=== PATIENT | female | born 1985 | race Caucasian/White ===

== ENCOUNTER 2018-04-12 17:41 | Inpatient (IN) ==
[2018-04-12 18:11] LABS: Baso % (Auto) 0.5 % (0.0-2.0); Eos % (Auto) 0.4 % (0.0-4.0); Hematocrit 40.4 % (35.0-46.0); Hemoglobin 13.8 gm/dL (11.6-15.3); Lymph # (Auto) 1.5 th/mm3 (1.0-4.8); Lymph % (Auto) 24.4 % (9.0-44.0); Mean Corpuscular HGB Conc 34.1 % (32.0-36.0); Mean Corpuscular Hemoglobin 32.5 pg (27.0-34.0); Mean Corpuscular Volume 95.3 fL (80.0-100.0); Mean Platelet Volume 8.5 fL (7.0-11.0); Mono # (Auto) 0.4 th/mm3 (0.0-0.9); Mono % (Auto) 6.3 % (0.0-8.0); Neut # (Auto) 4.3 th/mm3 (1.8-7.7); Neut % (Auto) 68.4 % (16.0-70.0); Platelet Count 285 th/mm3 (150-450); Red Blood Count 4.24 mil/mm3 (4.00-5.30); Red Cell Distribution Width 13.4 % (11.6-17.2); White Blood Count 6.2 th/mm3 (4.0-11.0)
[2018-04-12 18:33] LABS: Albumin 4.5 g/dL (3.4-5.0); Anion Gap 9 meq/L (5-15); Blood Urea Nitrogen 5 mg/dL (7-18); Calcium 8.6 mg/dL (8.5-10.1); Carbon Dioxide 24.6 meq/L (21.0-32.0); Chloride 102 meq/L (98-107); Glomerular Filtration Rate 81 mL/min (>89); Glucose,Random 66 mg/dL (74-106); Potassium 4.1 meq/L (3.5-5.1); Sodium 136 meq/L (136-145)
[2018-04-12 18:34] LABS: Alanine Aminotransferase 29 U/L (10-53); Aspartate Aminotransferase 28 U/L (15-37)
[2018-04-12 18:35] LABS: Alcohol 228 mg/dL (0-5)
[2018-04-12 18:43] LABS: Alkaline Phosphatase 82 U/L (45-117); Thyroid Stimulating Hormone 0.872 uIU/mL (0.358-3.740); Total Protein 8.2 g/dL (6.4-8.2)
[2018-04-12 19:21] LABS: Bilirubin,Urine Negative (Negative); Clarity,Urine Hazy (Clear); Color,Urine Straw (Yellw/Straw); Glucose,Urine (UA) Negative (Negative); Leukocyte Esterase,Urine Negative (Negative); Nitrite,Urine Negative (Negative); Specific Gravity,Urine 1.002 (1.002-1.035); Squamous Epithelial Cell,Urine 2 /hpf (0-5)
[2018-04-12 19:27] LABS: Amphetamine Screen,Urine Neg (Neg); Barbiturate Screen,Urine Neg (Neg); Cannabinoid Screen,Urine Neg (Neg); Cocaine Screen,Urine Neg (Neg)
[2018-04-12 19:30] LABS: Opiate Screen,Urine Neg (Neg)
--- NOTE | 2018-04-12 21:34 | ED ---
HPI General Chief Complaint: Psychiatric Symptoms Stated Complaint: Psych Time Seen by Provider: 04/12/18 19:37 Source: patient and police Mode of arrival: other (Police) Limitations: no limitations History of Present Illness HPI Narrative: Presents to our facility under a [place] act by the police department. Patient was in a argument with her mother who called the police. Upon police his arrival to the location patient started screaming that she wanted to kill herself. Patient is obviously intoxicated. Admits to drinking alcohol throughout the day MD complaint: Reports suicidal ideation Onset (ago): unknown Duration: constant History of same: No Relieving factors: none Exacerbating factors: none Context: Reports recent alcohol abuse; Denies recent drug abuse Associated psychiatric symptoms: Reports depression Associated symptoms: Denies confusion, headache, shortness of breath, nausea, vomiting and syncope Treatments prior to arrival: Reports none Related Data Home Medications Medication Instructions Recorded Confirmed sertraline 100 mg PO DAILY 04/12/18 04/12/18 Allergies Allergy/AdvReac Type Severity Reaction Status Date / Time No Known Allergies Allergy Verified 04/12/18 17:48 [facility] Medical History Medical History Depression (Acute) Surgical History Surgical History H/O breast augmentation (Acute) History of removal of ovarian cyst (Acute) Social History Social History Substance History: No History of Abuse Second Hand Smoke Exposure: No Smoking Status: Former smoker How Often Do You Have a Drink Containing Alcohol: 2 to 3 times a week Recent Travel in [facility] within the Last 8 Weeks: No Recent Out of Country Travel within the Last 8 Weeks: No Immunization History Tetanus Immunization: <5 Years Course Initial Documented Vital Signs Temperature 98.2 F 04/12/18 17:49 Pulse Rate 96 H 04/12/18 17:49 Respiratory Rate 16 04/12/18 17:49 Blood Pressure 133/91 H 04/12/18 17:49 Pulse Oximetry 99 04/12/18 17:49 Last Documented Vital Signs Temperature 98.2 F 04/12/18 22:10 Pulse Rate 90 04/12/18 22:10 Respiratory Rate 12 04/12/18 22:10 Blood Pressure 110/60 04/12/18 22:10 Pulse Oximetry 95 04/12/18 22:10 Medical Decision Making MDM Narrative Medical decision making narrative: Presents to our facility under a [place] act by the police department. Patient was in a argument with her mother who called the police. Upon police his arrival to the location patient started screaming that she wanted to kill herself. Patient is obviously intoxicated. Admits to drinking alcohol throughout the day Blood pressure is 110/60, pulse is 90, temperature is 98.2, O2 sat is 95 on room air Physical exam is unremarkable except for patient is obviously intoxicated. Patient received basic lab work along with a tox screen Patient's alcohol level is 228 Patient is medically cleared at 2200 Await psychiatric evaluation in the morning Medical Screen Exam Complete: Yes Emergency Medical Condition: Yes Differential Diagnosis Differential Diagnosis: Suicidal ideation, anxiety, depression, alcohol induced psychosis, alcohol dependence Lab Data Lab results reviewed: Yes I reviewed the patient's lab results. Result diagrams: 04/12/18 17:54 04/12/18 17:54 POC Results POC Urine Results Negative Lab Results 04/12/18 04/12/18 04/12/18 Range/Units 17:54 17:54 17:54 WBC 6.2 (4.0-11.0) th/mm3 RBC 4.24 (4.00-5.30) mil/mm3 Hgb 13.8 (11.6-15.3) gm/dL Hct 40.4 (35.0-46.0) % MCV 95.3 (80.0-100.0) fL MCH 32.5 (27.0-34.0) pg MCHC 34.1 (32.0-36.0) % RDW 13.4 (11.6-17.2) % Plt Count 285 (150-450) th/mm3 MPV 8.5 (7.0-11.0) fL Neut % (Auto) 68.4 (16.0-70.0) % Lymph % (Auto) 24.4 (9.0-44.0) % [place] % (Auto) 6.3 (0.0-8.0) % Eos % (Auto) 0.4 (0.0-4.0) % Baso % (Auto) 0.5 (0.0-2.0) % Neut # (Auto) 4.3 (1.8-7.7) th/mm3 Lymph # (Auto) 1.5 (1.0-4.8) th/mm3 [place] # (Auto) 0.4 (0.0-0.9) th/mm3 Eos # (Auto) 0.0 (0.0-0.4) th/mm3 Baso # (Auto) 0.0 (0.0-0.2) th/mm3 WBC Differential . Differential Comment Auto diff final Sodium 136 (136-145) meq/L Potassium 4.1 (3.5-5.1) meq/L Chloride 102 (98-107) meq/L Carbon Dioxide 24.6 (21.0-32.0) meq/L Anion Gap 9 (5-15) meq/L BUN 5 L (7-18) mg/dL Creatinine 0.81 (0.50-1.00) mg/dL Estimated GFR 81 L (>89) mL/min Random Glucose 66 L (74-106) mg/dL Calcium 8.6 (8.5-10.1) mg/dL Magnesium 2.0 (1.5-2.5) mg/dL Total Bilirubin 0.5 (0.2-1.0) mg/dL AST 28 (15-37) U/L ALT 29 (10-53) U/L Alkaline Phosphatase 82 (45-117) U/L Total Protein 8.2 (6.4-8.2) g/dL Albumin 4.5 (3.4-5.0) g/dL TSH 0.872 (0.358-3.740) uIU/mL Urine Color (Yellw/Straw) Urine Clarity (Clear) Urine pH (5.0-8.5) Ur Specific [place] (1.002-1.035) Urine Protein (Neg-Trace) mg/dL Urine Glucose (UA) (Negative) mg/dL Urine Ketones (Negative) mg/dL Urine Occult Blood (Negative) Urine Nitrate (Negative) Urine Bilirubin (Negative) Urine Urobilinogen (Less than 2) mg/dL Ur Leukocyte Esterase (Negative) Urine RBC (0-3) /hpf Ur Squamous Epith Cells (0-5) /hpf Micro UA Comment Ur Microscopic Review Urine Culture Comments Salicylates Less than 1.7 L (2.8-20.0) mg/dL Urine Opiates Screen (Neg) Acetaminophen Less than 2.0 L (10.0-30.0) mcg/mL Ur Barbiturates Screen (Neg) Ur Amphetamines Screen (Neg) U Benzodiazepines Scrn (Neg) Urine Cocaine Screen (Neg) U Cannabinoids Screen (Neg) Serum Alcohol 228 H (0-5) mg/dL 04/12/18 04/12/18 Range/Units 18:15 18:15 WBC (4.0-11.0) th/mm3 RBC (4.00-5.30) mil/mm3 Hgb (11.6-15.3) gm/dL Hct (35.0-46.0) % MCV (80.0-100.0) fL MCH (27.0-34.0) pg MCHC (32.0-36.0) % RDW (11.6-17.2) % Plt Count (150-450) th/mm3 MPV (7.0-11.0) fL Neut % (Auto) (16.0-70.0) % Lymph % (Auto) (9.0-44.0) % [place] % (Auto) (0.0-8.0) % Eos % (Auto) (0.0-4.0) % Baso % (Auto) (0.0-2.0) % Neut # (Auto) (1.8-7.7) th/mm3 Lymph # (Auto) (1.0-4.8) th/mm3 [place] # (Auto) (0.0-0.9) th/mm3 Eos # (Auto) (0.0-0.4) th/mm3 Baso # (Auto) (0.0-0.2) th/mm3 WBC Differential Differential Comment Sodium (136-145) meq/L Potassium (3.5-5.1) meq/L Chloride (98-107) meq/L Carbon Dioxide (21.0-32.0) meq/L Anion Gap (5-15) meq/L BUN (7-18) mg/dL Creatinine (0.50-1.00) mg/dL Estimated GFR (>89) mL/min Random Glucose (74-106) mg/dL Calcium (8.5-10.1) mg/dL Magnesium (1.5-2.5) mg/dL Total Bilirubin (0.2-1.0) mg/dL AST (15-37) U/L ALT (10-53) U/L Alkaline Phosphatase (45-117) U/L Total Protein (6.4-8.2) g/dL Albumin (3.4-5.0) g/dL TSH (0.358-3.740) uIU/mL Urine Color Straw (Yellw/Straw) Urine Clarity Hazy H (Clear) Urine pH 6.0 (5.0-8.5) Ur Specific [place] 1.002 (1.002-1.035) Urine Protein 30 H (Neg-Trace) mg/dL Urine Glucose (UA) Negative (Negative) mg/dL Urine Ketones Negative (Negative) mg/dL Urine Occult Blood Large H (Negative) Urine Nitrate Negative (Negative) Urine Bilirubin Negative (Negative) Urine Urobilinogen Less than 2 (Less than 2) mg/dL Ur Leukocyte Esterase Negative (Negative) Urine RBC Less than 1 (0-3) /hpf Ur Squamous Epith Cells 2 (0-5) /hpf Micro UA Comment Culture not ind Ur Microscopic Review Not Reportable Urine Culture Comments Culture not ind Salicylates (2.8-20.0) mg/dL Urine Opiates Screen Neg (Neg) Acetaminophen (10.0-30.0) mcg/mL Ur Barbiturates Screen Neg (Neg) Ur Amphetamines Screen Neg (Neg) U Benzodiazepines Scrn Neg (Neg) Urine Cocaine Screen Neg (Neg) U Cannabinoids Screen Neg (Neg) Serum Alcohol (0-5) mg/dL Discharge Plan Discharge Disposition Patient Disposition: Sign Out(ED Internal Use Only) Discharge Condition Condition: Stable Discharge Details Diagnosis: Suicidal ideation, Alcohol intoxication Physicians Team ED Provider: Jocelynn Tolbert ED Midlevel Provider: Estefany Ramirez Primary Care Provider: Primary Care SaraiLove Rxs /Orders / Referrals /Forms Prescriptions: No Action sertraline 100 mg Tablet 100 mg PO DAILY RF: 0 Status ED Status: Medically Cleared
[2018-04-13] MEDS ORDERED: Acetaminophen 325 MG Tablet PO PRN (10:39)
[2018-04-13] MEDS ORDERED: Aluminum/Magnesium/Simethacone Susp 30 ML UDC PO PRN (10:39)
[2018-04-13] MEDS ORDERED: Haloperidol Inj 5 MG/ML Ampul IV.PUSH PRN (10:42)
[2018-04-13] MEDS ORDERED: LORazepam 1 MG Tablet PO PRN (10:42)
[2018-04-13] MEDS ORDERED: Sertraline 50 MG Tablet PO SCH (10:45)
--- NOTE | 2018-04-13 10:55 | P.HPPSY ---
Provisional Diagnosis Admission Date: April 13, 2018 10:40 [place] I.: 1. Adjustment disorder with mixed disturbance of emotions and conduct Rule out major depressive episode 2. Alcohol use disorder, mild [place] II.: Deferred. Competence Certification of Person's Competence To Provide Express and Informed Consent I have personally examined Marsha Sanders, a person being served at [facility] on, April 13, 2018 1045. Express and informed consent means consent voluntarily given in writing, by a competent person, after sufficient explanation and disclosure of the subject matter involved to enable the person to make a knowing and willful decision without any element of force, fraud, deceit, duress, or other form of constraint or coercion. This person is 18 years of age or older, is not now known to be incompetent to consent to treatment with a guardian advocate, and does not have a health care surrogate or proxy currently making medical treatment decisions. I have found this person to be one of the following: [] Competent to provide express and informed consent, as defined above, for voluntary admission to this facility and is competent to provide express and informed consent for treatment. He/she has the consistent capacity to make well reasoned, willful, and knowing decisions concerning his or her medical or mental health treatment. The person fully and consistently understands the purpose of the admission for examination/placement and is fully capable of personally exercising all rights assured [place] [] Incompetent to provide express and informed consent to voluntary admission, and this is incompetent to provide express and informed consent to treatment. The person must be transferred to involuntary status and a petition for a guardian advocate filed with the Circuit Court. [X] Refusing to provide express and informed consent to voluntary admission but is competent to provide express and informed consent for treatment. The person must be discharged or transferred to involuntary status. Form shall be completed within 24 hours of a person's arrival at the receiving facility and filed in the clinical record of each person: 1. Admitted on a voluntary basis 2. Permitted to provide express and informed consent to his/her own treatment 3. Allowed to transfer from involuntary to voluntary status 4. Prior to permitting a person to consent to his or her own treatment after having been previously found incompetent to consent to treatment. History of Present Illness Capacity: Has capacity Chief Complaint: Tolbert act History of Present Illness: Ms. Sanders is a 33-year-old female with a reported history of eating disordered behavior in adolescence and young adulthood who presents under a Tolbert act by law enforcement alleging that the patient was involved in a disturbance with her mother and said that she was looking for a gun with which to kill herself. Of note, patient's alcohol level on presentation here was 228. Reviewing the electronic medical record, I see no previous psychiatric contact within our system. Patient seen and examined. Chart reviewed. Case discussed with nurse in the J pod. On my examination today, the patient presents as quite dysphoric and intermittently tearful. She is presently clinically sober. She explains that her mother was intoxicated yesterday evening and mother got into an argument with her father about the [employer]. The patient reports that she endeavored to defend her father but got drawn into the argument. Patient reports that she was so distressed by this argument that she did indeed look for her firearm with the goal of attempting suicide. Patient is somewhat evasive when asked if she is having ongoing suicidal ideation, saying that if she cannot get to a more stable living environment with her children, she would have nothing to live for. Patient describes her mood as tense. She reports that her sleep is chronically poor. No reported appetite disturbance. No reported focus or concentration difficulties. She does describe continuous and generalized anxiety. No reported panic. No hypomanic or manic symptoms reported. She denies any audiovisual hallucinations. I can elicit no delusional beliefs. No reported ongoing issues with eating disordered behavior. The remainder of the psychiatric ROS is negative. No acute physical complaints but the patient does report that she has been struggling with night sweats, ongoing despite having given over 6 months ago and not breast-feeding as well as menstrual abnormalities. Past psychiatric history: The patient reports a history of eating disorder from ages [age]. She describes this as a mixture of anorexic and bulimic behaviors but does not give a formal diagnosis. She also struggles with anxiety and is followed by her primary care doctor for this who prescribed Zoloft 100 mg daily. Patient reports that she has been on this medication for about 6 months but is not sure if it is helping. She is not under the care of an outpatient psychiatrist. She was psychiatrically admitted at age 15 for eating disordered behavior. She denies a history of suicide attempts. She denies a history of nonsuicidal self-injurious behavior. Family history: Patient reports that her brother carries a diagnosis of bipolar disorder. She also believes that he might have some sort of pervasive developmental disorder such as Asperger's. She denies a family history of suicide. Chemical dependency history: The patient reports regular consumption of approximately 48 ounces of beer daily. Patient does admit that she has occasionally lost control of quantity of consumption and has drunk even more beer. She also reports that she has had relationship problems as a consequence of her drinking. She denies any history of DUIs or work problems related to her drinking. She denies any history of DTs or seizures. Her longest sober time was 9 months while she was . She denies any use of cannabis, benzodiazepines, pain pills or other substances. She does vape nicotine. Social history: The patient is in the process of a divorce from her who is in the . She has moved in with her parents but reportedly has a somewhat fractious relationship with them. In the home are her parents, her brother, HER-2 young children and a pet dog. 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 Presently, she is looking for work. She does report owning a firearm and says that her father has confiscated this, although she does plan to get this back. She is a [employer]. She denies any history of trauma. Patient declines to provide any sources for collateral information when asked, saying that there are 9 who would pain to her in a good light. Past medical history: No reported history of diagnosed medical issues other than psychiatric issues. Medications: Zoloft 100 mg daily. Allergies: No known allergies. - Inpatient Certification I certify that the inpatient services were ordered in accordance with Medicare regulations governing the order. This includes certification that hospital inpatient services are reasonable and necessary and in the case of services not specified as inpatient-only under 42 CFR 419.22(n), that they are appropriately provided as inpatient services in accordance to with the 2-midnight benchmark under 43 CFR 412.3(e) I certify that inpatient psychiatric hospital services are medically necessary. Evaluation and treatment and/or diagnostic testing are expected to improve the patient's condition. The patient needs on a daily basis, active treatment furnished directly by or requiring the supervision of inpatient psychiatric facility personnel. Estimated Total Length of Stay (Days): 5 (3-5) Plans for Post Hospital Care: Not yet determined Review of Systems All other systems reviewed negative except as stated in HPI [facility] - History History Provided By: Patient - Medical History Medical History: Medical History (Last Updated 04/12/18 @ 17:52 by Delphine Calvert RN) Depression - Surgical History Surgical History: Surgical History (Last Updated 04/12/18 @ 17:52 by Delphine Calvert RN) H/O breast augmentation History of removal of ovarian cyst - Tobacco History Second Hand Smoke Exposure: No Tobacco Use In Past 30 Days: No Smoking Status: Former smoker - Alcohol History How Often Do You Have a Drink Containing Alcohol: 2 to 3 times a week - Substance Use History Substance History: No History of Abuse - Travel History Recent Travel in the [place] Within the Last 8 Weeks: No Recent Travel Out of the Country Within the Last 8 Weeks: No - Immunization History Tetanus Immunization: <5 Years Quality Measures - Psychiatric History Psychological trauma history: See above - Patient Strengths Patient's strengths (minimum of 2): In a monitored setting Medications and Allergies Active Medications: Active Medications Acetaminophen (Tylenol) 650 mg PO Q4H PRN PRN Reason: Pain 1-5 or Temp >101F Al Hydrox/Mg Hydrox/Simethicone (Mag-Al Plus Susp Liq) 30 ml PO Q6H PRN PRN Reason: DYSPEPSIA Al Hydroxide/Mg Hydroxide (Milk Of Magnesia Liq) 30 ml PO Q12H PRN PRN Reason: Mild Constipation Flumazenil (Romazecon Inj) 0.2 mg IV.PUSH Q1M PRN PRN Reason: OVERSEDATION Folic Acid (Folic Acid) 1 mg PO DAILY JONNATHAN Stop: 04/18/18 10:44 Haloperidol Lactate (Haldol Inj) 1 mg IV.PUSH Q15M PRN PRN Reason: for severe agitation Hydroxyzine HCl (Atarax) 25 mg PO Q6H PRN PRN Reason: ANXIETY Lorazepam (Ativan) 1 mg PO Q4H PRN PRN Reason: for CIWA 8-10 Lorazepam (Ativan) 2 mg PO Q2H PRN PRN Reason: for CIWA 11-14 Lorazepam (Ativan Inj) 2 mg IV.PUSH Q2H PRN PRN Reason: for CIWA 11-14 Lorazepam (Ativan Inj) 2 mg IV.PUSH Q1H PRN PRN Reason: for CIWA 15-20 Lorazepam (Ativan Inj) 2 mg IV.PUSH Q15M PRN PRN Reason: for CIWA > 20 Lorazepam (Ativan Inj) 1 mg IV.PUSH Q4H PRN PRN Reason: for CIWA 8-10 Melatonin (Melatonin) 5 mg PO HS PRN PRN Reason: INSOMNIA Multivitamins/Minerals (Theragran-M) 1 tab PO DAILY JONNATHAN Stop: 04/18/18 10:44 Nicotine (Habitrol 14 Mg Patch.24 Hr) 1 patch T-DERMAL DAILY PRN PRN Reason: Nicotine craving Patch Removal (Remove Old Patch) 1 each T-DERMAL HS JONNATHAN Sertraline HCl (Zoloft) 125 mg PO DAILY JONNATHAN Thiamine HCl (Vitamin B1) 100 mg PO DAILY JONNATHAN Allergies Allergy/AdvReac Type Severity Reaction Status Date / Time No Known Allergies Allergy Verified 04/12/18 17:48 Home Medications Medication Instructions Recorded Confirmed Type sertraline 100 mg PO DAILY 04/12/18 04/12/18 History Results - Labs CBC & Chem 7: 04/12/18 17:54 04/12/18 17:54 Labs: Laboratory Results - last 24 hr 04/12/18 04/12/18 04/12/18 17:54 17:54 17:54 WBC 6.2 RBC 4.24 Hgb 13.8 Hct 40.4 MCV 95.3 MCH 32.5 MCHC 34.1 RDW 13.4 Plt Count 285 MPV 8.5 Neut % (Auto) 68.4 Lymph % (Auto) 24.4 [place] % (Auto) 6.3 Eos % (Auto) 0.4 Baso % (Auto) 0.5 Neut # (Auto) 4.3 Lymph # (Auto) 1.5 [place] # (Auto) 0.4 Eos # (Auto) 0.0 Baso # (Auto) 0.0 WBC Differential . Differential Comment Auto diff final Sodium 136 Potassium 4.1 Chloride 102 Carbon Dioxide 24.6 Anion Gap 9 BUN 5 L Creatinine 0.81 Estimated GFR 81 L Random Glucose 66 L Calcium 8.6 Magnesium 2.0 Total Bilirubin 0.5 AST 28 ALT 29 Alkaline Phosphatase 82 Total Protein 8.2 Albumin 4.5 TSH 0.872 Urine Color Urine Clarity Urine pH Ur Specific [place] Urine Protein Urine Glucose (UA) Urine Ketones Urine Occult Blood Urine Nitrate Urine Bilirubin Urine Urobilinogen Ur Leukocyte Esterase Urine RBC Ur Squamous Epith Cells Micro UA Comment Ur Microscopic Review Urine Culture Comments Salicylates Less than 1.7 L Urine Opiates Screen Acetaminophen Less than 2.0 L Ur Barbiturates Screen Ur Amphetamines Screen U Benzodiazepines Scrn Urine Cocaine Screen U Cannabinoids Screen Serum Alcohol 228 H 04/12/18 04/12/18 18:15 18:15 WBC RBC Hgb Hct MCV MCH MCHC RDW Plt Count MPV Neut % (Auto) Lymph % (Auto) [place] % (Auto) Eos % (Auto) Baso % (Auto) Neut # (Auto) Lymph # (Auto) [place] # (Auto) Eos # (Auto) Baso # (Auto) WBC Differential Differential Comment Sodium Potassium Chloride Carbon Dioxide Anion Gap BUN Creatinine Estimated GFR Random Glucose Calcium Magnesium Total Bilirubin AST ALT Alkaline Phosphatase Total Protein Albumin TSH Urine Color Straw Urine Clarity Hazy H Urine pH 6.0 Ur Specific [place] 1.002 Urine Protein 30 H Urine Glucose (UA) Negative Urine Ketones Negative Urine Occult Blood Large H Urine Nitrate Negative Urine Bilirubin Negative Urine Urobilinogen Less than 2 Ur Leukocyte Esterase Negative Urine RBC Less than 1 Ur Squamous Epith Cells 2 Micro UA Comment Culture not ind Ur Microscopic Review Not Reportable Urine Culture Comments Culture not ind Salicylates Urine Opiates Screen Neg Acetaminophen Ur Barbiturates Screen Neg Ur Amphetamines Screen Neg U Benzodiazepines Scrn Neg Urine Cocaine Screen Neg U Cannabinoids Screen Neg Serum Alcohol Labs reviewed. GFR slightly decreased at 81. Urinalysis reveals large occult blood. No anemia. ED POC test negative. Exam Vital signs: Vital Signs 04/12/18 17:49 04/12/18 22:10 04/13/18 05:29 Temperature 98.2 F 98.2 F 98.3 F Pulse Rate 96 H 90 76 Respiratory Rate 16 12 16 Blood Pressure 133/91 H 110/60 125/73 Pulse Oximetry 99 95 98 Intake & Output 04/12/18 04/13/18 04/13/18 18:59 06:59 18:59 Weight 56.699 kg Narrative: Physical examination was completed by the ED provider. On my examination today , the patient appears to be in no acute physical distress. No motor abnormalities noted. No signs of ongoing intoxication noted. No hand tremor, no diaphoresis, no mydriasis, no other signs of alcohol withdrawal noted. Labs and vital signs reviewed. Mental Status Examination Appearance: Appropriate Consciousness: Alert Orientation: x4 Motor Activity: Other (No motor abnormalities noted) Speech: Unremarkable Language: Adequate Fund of Knowledge: Adequate Attention and Concentration: Adequate Memory: Unremarkable (Grossly intact on clinical exam) Mood: Other (Dysphoric) Affect: Other (Tearful at times) Thought Process & Associations: Intact Thought Content: Appropriate Hallucination Type: None Delusion Type: None Homicidal Ideation: No Homicidal Plan: No Homicidal Intention: No Insight: Fair Judgment: Impulsive Mental Status Exam Remarks: Evasive when asked about ongoing suicidality, see above. Assessment and Plan - Assessment (1) Adjustment disorder with mixed disturbance of emotions and conduct Code(s): F43.25 - Adjustment disorder with mixed disturbance of emotions and conduct Status: Acute (2) Alcohol use disorder, mild, abuse Code(s): F10.10 - Alcohol abuse, uncomplicated Status: Acute - Plan Plan: 33-year-old female with psychiatric history as detailed above who presents under a [place] act by law enforcement alleging threats of harm to self. On my evaluation today, the patient is clinically sober but remains quite dysphoric and tearful. She admits to contemplating suicide by gunshot wound last night and is somewhat evasive when asked about ongoing suicidality now. She declines to allow us to reach out to anyone for collateral information that might help clarify her suicide risk. Differential diagnosis is to include adjustment disorder, behavioral disturbance in the setting of alcohol intoxication, mood episode such as major depressive episode. Given the patient's current presentation and looking at the totality of the case, it seems most prudent at this juncture to admit the patient to the inpatient psychiatric unit for observation for ongoing impairments in safety. Admit inpatient. Patient is presently declining to consent for voluntary admission. Involuntary status. I have completed first opinion. Consult for second opinion. Patient retains capacity to consent for medications. I will titrate patient's Zoloft to 125 mg daily to manage her dysphoria. Atarax as needed for anxiety. Melatonin as needed for sleep. Request hospitalist consultation for patient's complaints of , menstrual abnormalities and night sweats. CIWA scale with Ativan for the management of any withdrawal. Thiamine and folate. Seizure precautions. Vitals every 4 hours as per CIWA scale. Counselor to see. Continue to endeavor to obtain collateral information. Disposition planning. Estimated length of stay: 3-5 days. Justification for Continued Inpatient Stay: Monitoring for ongoing impairments in safety. Discharge Planning: Pending outcome of observation. Request Healthcare Surrogate/Guardian Advocate?: No
[2018-04-13] MEDS: Multivitamin/Minerals Therapeutic Tablet PO SCH (12:29)
[2018-04-13] MEDS: Folic Acid 1 MG Tablet PO SCH (12:29)
[2018-04-13] MEDS ORDERED: Influenza (Quadrivalent) Vaccine 0.5 ML Syringe IM ONE (14:00)
[2018-04-13] MEDS: Sertraline 50 MG Tablet PO SCH (20:57)
[2018-04-13] MEDS: Melatonin 5 MG Tablet PO PRN (20:57)
[2018-04-14] MEDS: Multivitamin/Minerals Therapeutic Tablet PO SCH (08:39)
[2018-04-14] MEDS: Folic Acid 1 MG Tablet PO SCH (08:39)
[2018-04-14 11:15] LABS: Calcium 8.8 mg/dL (8.5-10.1); Potassium 3.8 meq/L (3.5-5.1)
[2018-04-14 11:18] LABS: Chol/HDL Ratio 1.98 Ratio
--- NOTE | 2018-04-14 12:40 | P.PNPSY ---
Subjective Chief Complaint: Tolbert act Remarks: Patient seen and examined with nurse. Chart reviewed. Case discussed with nursing staff. On my examination today, the patient says that she feels somewhat improved. She recognizes that her behavior prior to admission was "irrational." She denies any SI or HI. Affect less dysphoric today. Some cluster B personality traits noted. Denies new side effects from medications. Hospitalist consultation pending regarding previously reported physical complaints. No new physical complaints. Vital Signs Temp Pulse Resp BP Pulse Ox 04/14/18 06:03 97.7 F 79 16 116/66 100 Laboratory Results - last 24 hr 04/14/18 09:59 Sodium 138 Potassium 3.8 Chloride 104 Carbon Dioxide 29.0 Anion Gap 5 BUN 12 Creatinine 0.83 Estimated GFR 79 L Random Glucose 66 L Calcium 8.8 Triglycerides 137 Cholesterol 204 H LDL Cholesterol, Calc 74 HDL Cholesterol 103.0 H Cholesterol/HDL Ratio 1.98 Labs reviewed. GFR stable. Prolactin level has been ordered and is pending. Review of Systems All other systems reviewed negative except as stated in HPI Mental Status Examination Appearance: Appropriate Consciousness: Alert Orientation: x4 Motor Activity: Other (No abnormal motor movements noted. No signs of withdrawal noted.) Speech: Unremarkable Language: Adequate Fund of Knowledge: Adequate Attention and Concentration: Adequate Memory: Unremarkable (Grossly intact on clinical exam) Mood: Other (Less dysphoric) Affect: Appropriate Thought Process & Associations: Intact Thought Content: Appropriate Hallucination Type: None Delusion Type: None Suicidal Ideation: No Homicidal Ideation: No Insight: Fair Judgment: Impulsive Assessment and Plan - Assessment (1) Adjustment disorder with mixed disturbance of emotions and conduct Code(s): F43.25 - Adjustment disorder with mixed disturbance of emotions and conduct Status: Acute (2) Alcohol use disorder, mild, abuse Code(s): F10.10 - Alcohol abuse, uncomplicated Status: Acute - Plan Plan: Continue increased dose of Zoloft as ordered. Await hospitalist consultation. Continue to monitor on the inpatient unit. Continue other medications and care as ordered. Justification for Continued Inpatient Stay: Monitoring for impairments in safety. Discharge Planning: Pending outcome of observation. Request Healthcare Surrogate/Guardian Advocate?: No
--- NOTE | 2018-04-14 13:24 | P.PNPSY ---
Subjective Chief Complaint: Tolbert act Remarks: This is a request for second opinion. Admission note was reviewed and I agree with the history. Patient was seen and case was discussed with nursing. Patient has poor insight into admission. She minimizes the events leading up to her admission and a suicidal gesture. She is tearful and hysterical demanding to leave. At this time she does deny suicidal or homicidal ideation intent or plan. Review of Systems All other systems reviewed negative except as stated in HPI Mental Status Examination Appearance: Appropriate Consciousness: Alert Orientation: x4 Motor Activity: Other (No motor abnormalities noted) Speech: Unremarkable Language: Adequate Fund of Knowledge: Adequate Attention and Concentration: Adequate Memory: Unremarkable (Grossly intact on clinical exam) Mood: Other (Dysphoric) Affect: Other (Tearful at times) Thought Process & Associations: Intact Thought Content: Appropriate Hallucination Type: None Delusion Type: None Homicidal Ideation: No Homicidal Plan: No Homicidal Intention: No Insight: Fair Judgment: Impulsive Assessment and Plan - Assessment (1) Adjustment disorder with mixed disturbance of emotions and conduct Code(s): F43.25 - Adjustment disorder with mixed disturbance of emotions and conduct Status: Acute (2) Alcohol use disorder, mild, abuse Code(s): F10.10 - Alcohol abuse, uncomplicated Status: Acute - Plan Plan: I agree with the first opinion to continue petition. Criteria include suicidal ideation with a plan to kill herself with a gun Justification for Continued Inpatient Stay: Patient would decompensate in a less restrictive setting Request Healthcare Surrogate/Guardian Advocate?: No
[2018-04-14 13:29] LABS: Hemoglobin A1c 4.7 % (4.3-6.0)
--- NOTE | 2018-04-14 17:19 | P.CONIM ---
History of Present Illness Service: [facility] Consult date: 04/14/18 Reason for Consult: lactating without , 9 mos post Primary Care Provider: No Primary Care Physician Chief Complaint: lactating History of Present Illness: Ms. Sanders is a 33-year-old female with a reported history of eating disordered behavior in adolescence and young adulthood who presents under a [place] act by law enforcement alleging that the patient was involved in a disturbance with her mother and said that she was looking for a gun with which to kill herself. Of note, patient's alcohol level on presentation here was 228. In Review of the electronic medical record, there is no previous psychiatric contact within our system.Patient was admitted to psychiatry unit for evaluation and treatment. Medicine team consulted for medical management and complaint of after giving breath for 9 months. Patient seen and examined, family identified themselves as parents in the room discussed concern of continued . Patient stated she never breast-fed. Patient also mentioned she has 2 menstrual period 1n 1 month and happened twice. Patient stated he she is seen at [facility] Dr Dorman and recommended to take control pills. However patient stated she did not start taking the medication yet, however she has the prescription. States that she went to see how it do without it. Patient denies any breast pain or discomfort, denies abdominal pain, nausea, vomiting, diarrhea or constipation. Denies any period at this time. Patient denies any headache or SOB, denies any fever or chills. Patient denies any discharges or episode of at this time. Patient instructed to inform the nurse when it happened. Patient stated it happened only during her menstrual period. Patient and family noted that she did not have any psychiatric issues before however she had recently from the but there is no legal papers yet. Review of Systems Review of Systems: all other systems reviewed are negative [facility] Medical History Medical History Depression (Acute) 2 para 2 (Acute) Surgical History Surgical History H/O breast augmentation (Acute) History of removal of ovarian cyst (Acute) Social History Social History Substance History: No History of Abuse Second Hand Smoke Exposure: No Smoking Status: Former smoker Tobacco Type: Cigarettes How Often Do You Have a Drink Containing Alcohol: 2 to 3 times a week Recent Travel in [facility] within the Last 8 Weeks: No Recent Out of Country Travel within the Last 8 Weeks: No Immunization History Tetanus Immunization: <5 Years Hx Influenza Vaccine This Season: No Medications and Allergies Allergies Allergy/AdvReac Type Severity Reaction Status Date / Time No Known Allergies Allergy Verified 04/12/18 17:48 Home Medications Medication Instructions Recorded Confirmed Type sertraline 100 mg PO DAILY 04/12/18 04/12/18 History Active Medications: Active Medications Acetaminophen (Tylenol) 650 mg PO Q4H PRN PRN Reason: Pain 1-5 or Temp >101F Al Hydrox/Mg Hydrox/Simethicone (Mag-Al Plus Susp Liq) 30 ml PO Q6H PRN PRN Reason: DYSPEPSIA Al Hydroxide/Mg Hydroxide (Milk Of Magnesia Liq) 30 ml PO Q12H PRN PRN Reason: Mild Constipation Flumazenil (Romazecon Inj) 0.2 mg IV.PUSH Q1M PRN PRN Reason: OVERSEDATION Folic Acid (Folic Acid) 1 mg PO DAILY JONNATHAN Stop: 04/18/18 10:44 Last Admin: 04/14/18 08:39 Dose: 1 mg Haloperidol Lactate (Haldol Inj) 1 mg IV.PUSH Q15M PRN PRN Reason: for severe agitation Hydroxyzine Pamoate (Vistaril) 25 mg PO Q6H PRN PRN Reason: ANXIETY Last Admin: 04/13/18 20:57 Dose: 25 mg Lorazepam (Ativan) 1 mg PO Q4H PRN PRN Reason: for CIWA 8-10 Lorazepam (Ativan) 2 mg PO Q2H PRN PRN Reason: for CIWA 11-14 Lorazepam (Ativan Inj) 2 mg IV.PUSH Q2H PRN PRN Reason: for CIWA 11-14 Lorazepam (Ativan Inj) 2 mg IV.PUSH Q1H PRN PRN Reason: for CIWA 15-20 Lorazepam (Ativan Inj) 2 mg IV.PUSH Q15M PRN PRN Reason: for CIWA > 20 Lorazepam (Ativan Inj) 1 mg IV.PUSH Q4H PRN PRN Reason: for CIWA 8-10 Melatonin (Melatonin) 5 mg PO HS PRN PRN Reason: INSOMNIA Last Admin: 04/13/18 20:57 Dose: 5 mg Miscellaneous (Pill Splitter) 1 each OTHER UNSCH PRN PRN Reason: SEE LABEL COMMENTS Multivitamins/Minerals (Theragran-M) 1 tab PO DAILY [facility] Stop: 04/18/18 10:44 Last Admin: 04/14/18 08:39 Dose: 1 tab Nicotine (Habitrol 14 Mg Patch.24 Hr) 1 patch T-DERMAL DAILY PRN PRN Reason: Nicotine craving Last Admin: 04/14/18 16:22 Dose: 1 patch Patch Removal (Remove Old Patch) 1 each T-DERMAL HS JONNATHAN Last Admin: 04/13/18 20:56 Dose: 1 each Sertraline HCl (Zoloft) 125 mg PO HS JONNATHAN Last Admin: 04/13/18 20:57 Dose: 125 mg Thiamine HCl (Vitamin B1) 100 mg PO DAILY JONNATHAN Last Admin: 04/14/18 08:39 Dose: 100 mg Physical Exam Vital signs: Last Vital Signs Temp 97.7 F 04/14/18 06:03 Pulse 79 04/14/18 06:03 Resp 16 04/14/18 06:03 BP 116/66 04/14/18 06:03 Pulse Ox 100 04/14/18 06:03 Intake & Output 04/12/18 04/13/18 04/14/18 04/15/18 06:59 06:59 06:59 06:59 Weight 56.699 kg 56.6 kg Narrative: GENERAL: Well-developed, well-nourished, young female in no apparent distress SKIN: Warm and dry. HEAD: Atraumatic. Normocephalic. EYES: Pupils equal and round. No scleral icterus. No injection or drainage. ENT: No nasal bleeding or discharge. Mucous membranes pink and moist. NECK: Trachea midline. No JVD. CARDIOVASCULAR: Regular rate and rhythm. RESPIRATORY: No accessory muscle use. Clear to auscultation. Breath sounds equal bilaterally. GASTROINTESTINAL: Abdomen soft, non-tender, nondistended. Hepatic and splenic margins not palpable. MUSCULOSKELETAL: Extremities without clubbing, cyanosis, or edema. No obvious deformities. NEUROLOGICAL: Awake and alert. No obvious cranial nerve deficits. Motor grossly within normal limits. Five out of 5 muscle strength in the arms and legs. Normal speech. PSYCHIATRIC: Appropriate mood and affect; insight and judgment poor . Results Labs CBC & Chem 7: 04/12/18 17:54 04/14/18 09:59 Assessment and Plan (1) Adjustment disorder with mixed disturbance of emotions and conduct: Code(s): F43.25 - Adjustment disorder with mixed disturbance of emotions and conduct Status: Acute (2) Alcohol use disorder, mild, abuse: Code(s): F10.10 - Alcohol abuse, uncomplicated Status: Acute Plan Ms. Sanders is a 33-year-old female with a reported history of eating disordered behavior in adolescence and young adulthood who presents under a [place] act by law enforcement alleging that the patient was involved in a disturbance with her mother and said that she was looking for a gun with which to kill herself. Patient's alcohol level on presentation here was 228. In Review of the electronic medical record, there is no previous psychiatric contact within our system. Patient with complaint of after giving breath for 9 months without which happened during menstrual period. Lactating mother Irregular Menstrual periods 9 mos, without breast feeding Para 2, 2 - pt have seen [facility] for the same reason and was recommended to take control pills. Patient admitted has the prescription but has not started it yet. -prolactin level ordered and drawn, awaiting results - will start Rahel/ control pills if not interacting with Psychiatric medications or cleared with Psych - Follow up with [facility] Dr. Dorman (known to) or [facility] as an outpatient Alcohol use Disorder -CIWA Protocol -counseled on Alcohol cessation -ativan prn Adjustment Disorder Anxiety/Depression -Management by psychiatric team -Continue Zoloft DVT Protocol: pt ambulatory
[2018-04-14] MEDS: Melatonin 5 MG Tablet PO PRN (21:24)
[2018-04-14] MEDS: Sertraline 50 MG Tablet PO SCH (21:24)
[2018-04-15] MEDS: Multivitamin/Minerals Therapeutic Tablet PO SCH (08:45)
[2018-04-15] MEDS: Folic Acid 1 MG Tablet PO SCH (08:45)
--- NOTE | 2018-04-15 13:40 | P.DSPSY ---
Psychiatry Discharge Summary Inpatient Psychiatric care?: Yes Advance Directives: No Mental Health Advance Directive: No Health Care Proxy: No - Admission Admission Date: April 13, 2018 10:40 - Admission Diagnosis (1) Adjustment disorder with mixed disturbance of emotions and conduct Code(s): F43.25 - Adjustment disorder with mixed disturbance of emotions and conduct (2) Alcohol use disorder, mild, abuse Code(s): F10.10 - Alcohol abuse, uncomplicated Brief History: Ms. Sanders is a 33-year-old female with a reported history of eating disordered behavior in adolescence and young adulthood who presents under a [place] act by law enforcement alleging that the patient was involved in a disturbance with her mother and said that she was looking for a gun with which to kill herself. Of note, patient's alcohol level on presentation here was 228. Reviewing the electronic medical record, I see no previous psychiatric contact within our system. Patient seen and examined. Chart reviewed. Case discussed with nurse in the J pod. On my examination today, the patient presents as quite dysphoric and intermittently tearful. She is presently clinically sober. She explains that her mother was intoxicated yesterday evening and mother got into an argument with her father about the [employer]. The patient reports that she endeavored to defend her father but got drawn into the argument. Patient reports that she was so distressed by this argument that she did indeed look for her firearm with the goal of attempting suicide. Patient is somewhat evasive when asked if she is having ongoing suicidal ideation, saying that if she cannot get to a more stable living environment with her children, she would have nothing to live for. Patient describes her mood as tense. She reports that her sleep is chronically poor. No reported appetite disturbance. No reported focus or concentration difficulties. She does describe continuous and generalized anxiety. No reported panic. No hypomanic or manic symptoms reported. She denies any audiovisual hallucinations. I can elicit no delusional beliefs. No reported ongoing issues with eating disordered behavior. The remainder of the psychiatric ROS is negative. No acute physical complaints but the patient does report that she has been struggling with night sweats, ongoing despite having given over 6 months ago and not breast-feeding as well as menstrual abnormalities. Tobacco Use In Past 30 Days: No How Often Do You Have a Drink Containing Alcohol: 2 to 3 times a week Hospital Course: The patient was admitted to a locked, inpatient psychiatric unit. A general medical consultation was obtained. Appropriate precautions were in place throughout patient's hospital stay. Patient was seen and examined on the unit by psychiatry and also visited by counselor. Psychotropic medications were adjusted. Patient tolerated medication changes well without side effects. There was no evidence of any suicidality or homicidality on the inpatient unit. There was no evidence of self-care deficit. The patient was noted to have prominent borderline personality traits, and an underlying diagnosis of borderline personality disorder is suspected. On the day of discharge: Patient seen and examined with nurse, Prema. Chart reviewed. Case discussed with nursing staff. No behavioral issues noted overnight. Case discussed with counselor who has obtained collateral information from the patient's father. Parents are reportedly advocating for patient's discharge today and have told the counselor that they will supervise and monitor the patient after discharge. Counselor has confirmed with father that the home environment has been secured, and in particular that the patient' s firearm has been secured. On my examination today, the patient is requesting discharge from the inpatient psychiatric unit today. She displays some staff splitting and cycles of idealization/devaluation and in general continues to display borderline personality style. She denies any suicidal or homicidal ideation, intent or plan. I can elicit no depressive or hypomanic/manic symptoms. She is notably future oriented. She denies any audiovisual hallucinations. I can elicit no delusional beliefs. She denies any new side effects from medications. She has no acute physical complaints. Weighing the acute, chronic, and protective factors and based on the available evidence, I fitness worker that the patient no longer meets criteria for involuntary psychiatric hospitalization. There is no evidence of imminent risk of harm to self or others at this point, nor is there evidence of self-care deficit to substantiate ongoing involuntary psychiatric hospitalization. The patient's borderline personality style does likely confer chronic but not acute or imminent risk, and in any event this risk would not be ameliorated and may in fact be worsened by ongoing inpatient psychiatric hospitalization. Likewise, patient's alcohol use is a chronic risk factor. I have recommended to the patient that she abstain from substances of abuse and pursue chemical dependency evaluation and treatment on an outpatient basis. Patient will be discharged today into parents' care with mental health and chemical dependency follow-up as arranged by the counselor. Patient is also to follow-up with primary care and with gynecology as recommended by the hospitalist. I have discussed with the patient that her prolactin level is presently pending, and she will need to follow-up on this after discharge. I have counseled the patient regarding warning signs for need to return to the psychiatric emergency room as part of a general safety plan. - Discharge Discharge Date: 04/15/18 - Discharge Diagnosis (1) Borderline personality disorder Diagnosis: Principal Code(s): F60.3 - Borderline personality disorder Status: Suspected (2) Alcohol use disorder, mild, abuse Diagnosis: Secondary (Counseled to quit) Code(s): F10.10 - Alcohol abuse, uncomplicated Status: Chronic Discharge Disposition: Home - Discharge Instructions Discharge Diet: Regular Diet Activities You Can Perform: Weight Bearing As Tolerat - Discharge Time > 30 minutes Mental Status Examination Appearance: Appropriate Consciousness: Alert Orientation: x4 Motor Activity: Normal gait, Other (No signs of withdrawal noted. No other motor abnormalities noted.) Speech: Unremarkable Language: Adequate Fund of Knowledge: Adequate Attention and Concentration: Adequate Memory: Unremarkable (Grossly intact on clinical exam) Mood: Appropriate Affect: Appropriate Thought Process & Associations: Intact, Logical, Linear Thought Content: Appropriate Hallucination Type: None Delusion Type: None Suicidal Ideation: No Suicidal Plan: No Suicidal Intention: No Homicidal Ideation: No Homicidal Plan: No Homicidal Intention: No Insight: Fair Judgment: Impulsive (Chronically impulsive in the setting of borderline personality style) Discharge/Advance Care Plan - Results Vital Signs: Last Vital Signs Temp 97.8 F 04/15/18 05:21 Pulse 73 04/15/18 05:21 Resp 17 04/15/18 05:21 BP 110/95 H 04/15/18 05:21 Pulse Ox 99 04/15/18 05:21 Lab Results: Abnormal Lab Results 04/14/18 09:59 Hemoglobin A1c 4.7 Laboratory Results Hemoglobin A1c 4.7 % (4.3-6.0) 04/14/18 09:59 Triglycerides 137 mg/dL (42-150) 04/14/18 09:59 Cholesterol 204 mg/dL (120-200) H 04/14/18 09:59 LDL Cholesterol, Calc 74 mg/dL (0-99) 04/14/18 09:59 HDL Cholesterol 103.0 mg/dL (40.0-60.0) H 04/14/18 09:59 TSH 0.872 uIU/mL (0.358-3.740) 04/12/18 17:54 Urine Culture Comments Culture not ind 04/12/18 18:15 Summary of Procedures: None done. Pending Results: None - Medications Number of antipsychotic medications at discharge: 0 - Discharge Care Plan Goals to Promote Your Health: * To prevent worsening of your condition and complications * To maintain your health at the optimal level Directions to Meet Your Goals: Take your medications as prescribed Follow your dietary instruction Follow activity as directed Keep your appointments as scheduled Take your immunizations and boosters as scheduled If your symptoms worsen call your PCP, if no PCP go to Urgent Care Center or Emergency Room For 20/11 questions related to your inpatient stay or results of tests pending at discharge, please contact Dr. Viraj Marlow MD at [phone] Smoking is Dangerous to Your Health. Avoid second hand smoking
--- NOTE | 2018-04-15 14:21 | P.PNIM ---
Subjective Interval history: Follow up visit for lactating status, irregular menstrual period, alcohol disorder, anxiety, depression and adjustment disorder. Pt stated feeling better and ready to go home. Patient stated milk discharge only come out when she massage it out. However does not come out on its own. Denies any pain or discomfort. Denies any abdominal pain, headache or dizziness. Denies any fever or chills. Discussed to follow up with [facility] as an outpatien in 1 week. Nurse report no acute issues overnight. Physical Exam Vital signs: Last Vital Signs Temp 97.8 F 04/15/18 05:21 Pulse 73 04/15/18 05:21 Resp 17 04/15/18 05:21 BP 110/95 H 04/15/18 05:21 Pulse Ox 99 04/15/18 05:21 Intake & Output 04/13/18 04/14/18 04/15/18 04/16/18 06:59 06:59 06:59 06:59 Weight 56.699 kg 56.6 kg Narrative: GENERAL: Well-developed, well-nourished, young female in no apparent distress SKIN: Warm and dry. HEAD: Atraumatic. Normocephalic. EYES: Pupils equal and round. No scleral icterus. No injection or drainage. ENT: No nasal bleeding or discharge. Mucous membranes pink and moist. NECK: Trachea midline. No JVD. CARDIOVASCULAR: Regular rate and rhythm. RESPIRATORY: No accessory muscle use. Clear to auscultation. Breath sounds equal bilaterally. GASTROINTESTINAL: Abdomen soft, non-tender, nondistended. Hepatic and splenic margins not palpable. MUSCULOSKELETAL: Extremities without clubbing, cyanosis, or edema. No obvious deformities. NEUROLOGICAL: Awake and alert. No obvious cranial nerve deficits. Motor grossly within normal limits. Five out of 5 muscle strength in the arms and legs. Normal speech. PSYCHIATRIC: Appropriate mood and affect; insight and judgment poor . Results Labs CBC & Chem 7: 04/12/18 17:54 04/14/18 09:59 Assessment and Plan (1) Borderline personality disorder: Code(s): F60.3 - Borderline personality disorder Status: Suspected (2) Alcohol use disorder, mild, abuse: Code(s): F10.10 - Alcohol abuse, uncomplicated Status: Chronic Plan Ms. Sanders is a 33-year-old female with a reported history of eating disordered behavior in adolescence and young adulthood who presents under a [place] act by law enforcement alleging that the patient was involved in a disturbance with her mother and said that she was looking for a gun with which to kill herself. Patient's alcohol level on presentation here was 228. In Review of the electronic medical record, there is no previous psychiatric contact within our system. Patient with complaint of after giving breath for 9 months without which happened during menstrual period. Lactating mother Irregular Menstrual periods 9 mos, without breast feeding Para 2, 2 - pt have seen [facility] for the same reason and was recommended to take control pills. Patient admitted has the prescription but has not started it yet. -prolactin level ordered and drawn, awaiting results - will start Rahel/ control pills if not interacting with Psychiatric medications or cleared with Psych - Follow up with [facility] Dr. Dorman (known to) or [facility] as an outpatient Alcohol use Disorder -CIWA Protocol -counseled on Alcohol cessation -ativan prn Adjustment Disorder Anxiety/Depression -Management by psychiatric team -Continue Zoloft DVT Protocol: pt ambulatory Patient is Medically cleared to be discharge home and F/u with [facility] as an outpatient Progress Note: Quality VTE Deep Vein Thrombosis/Pulmonary Embolism Present on Admission: No
== END 2018-04-15 15:20 | disposition home or self-care (01) ==
LOC: NEPJ 17:41 → NEDA 04-13 10:40 → H260 04-13 11:33
PROVIDERS: ADMIT Psychiatry & Neurology Psychiatry; ATTEND Psychiatry & Neurology Psychiatry
DX: F41.1 Generalized anxiety disorder; R45.851 Suicidal ideations; N92.6 Irregular menstruation, unspecified; F60.3 Borderline personality disorder; Z87.891 Personal history of nicotine dependence; Y90.7 Blood alcohol level of 200-239 mg/100 ml; Z23 Encounter for immunization; O92.79 Other disorders of lactation; Z81.8 Family history of other mental and behavioral disorders; F10.129 Alcohol abuse with intoxication, unspecified; F43.25 Adjustment disorder with mixed disturbance of emotions and conduct